=== PATIENT | female | born 1960 | race Caucasian/White ===

== ENCOUNTER 2020-05-22 17:15 | Inpatient (IN) | payer BC, OTHER ==
[~2020-05-22] VITALS: Ht 160 cm; Wt 76.2 kg
--- NOTE | 2020-05-22 17:33 | NUR ---
Patient BIB [facility] via gurney from [facility]. Patient c/o increased anxiety and depression x6 days. Patient also states that it has been hard to sleep. Denies any SI / HI / AH / VH. Breathing even and unlabored. no cough or SOB noted. denies any CP / N / V. Safety precautions implemented. s/r up x2
--- NOTE | 2020-05-22 17:35 | NUR ---
Cecelia Campos CONCRETE TECHNICIAN notified. given and eta of 1899
[2020-05-22] MEDS ORDERED: BUPR150T10 PO (18:00)
[2020-05-22] MEDS ORDERED: VALS320T2 PO (18:00)
[2020-05-22] MEDS ORDERED: ASPI81TA31 PO (18:00)
[2020-05-22] MEDS ORDERED: ROSU10TA2 PO (18:00)
[2020-05-22] MEDS ORDERED: AMLO5TAB9 PO (18:00)
[2020-05-22] MEDS ORDERED: ESCI20TA PO (18:00)
[2020-05-22] MEDS ORDERED: OMEP40CA13 PO (18:00)
--- NOTE | 2020-05-22 19:40 | NUR ---
Patient noted resting in bed, no signs of acute distress noted
--- NOTE | 2020-05-22 19:50 | NUR ---
Crisis team called at this time (Cecelia), no answer, message left
--- NOTE | 2020-05-22 23:04 | NUR ---
report given to david MARTIN, will be going to room 308
[2020-05-22] MEDS ORDERED: TEMAZEPAM 7.5 MG CAPSULE PO PRN (23:45)
[2020-05-22] MEDS ORDERED: MAGNESIUM HYDROXIDE 30 ML LIQUID UDC PO PRN (23:45)
[2020-05-22] MEDS ORDERED: LORAZEPAM 1 MG TABLET PO PRN (23:45)
[2020-05-22] MEDS ORDERED: ACETAMINOPHEN 325 MG TABLET PO PRN (23:45)
--- NOTE | 2020-05-22 23:50 | NUR ---
Pt. admitted to MHU , under care of Dr. Olvera, no signs distress noted Belongs List completed and all belongings sent
--- NOTE | 2020-05-22 23:57 | NUR ---
Report given to MHU Nurse Neal MARTIN
[2020-05-23 00:06] VITALS: BP 134/82
--- NOTE | 2020-05-23 01:30 | NUR ---
GPS: Admitted to the unit on a voluntary status a 60 yr.old female under the care of /LIVAN Medina in fair condition. Pt.has been having increased anxiety,depression for the last 2 months. Also hasn't been eating,difficulty sleeping. Pt.states this all started during the quarantining r/t Covid. Pt.is AOx4. Cooperative but anxious during admission process. Denies wanting to hurt self. Contracts for safety while in the hosp. Pt's handbook/unit rules explained and verbalized understanding. Body assessment done by female nurse as requested by pt. Personal belongings completed. Safe environment provided. Restoril 7.5mg given for insomnia as requested. Will monitor effectiveness.
--- NOTE | 2020-05-23 06:36 | NUR ---
Nathen Jasmine paged through [employer] regarding medication reconciliation, awaiting call back.
[2020-05-23 07:30] VITALS: BP 130/73
--- NOTE | 2020-05-23 07:30 | NUR ---
Received patient on bed,AOx4, ambulatory self care, patient was concern on her medication and stil;l waiting for the med recon, patient seem to be guarded and isolative, no distress at this time , safety provided, needs attended
[2020-05-23] MEDS: MAG HYDROX/AL HYDROX/SIMETH 30 ML LIQUID UDC PO PRN (08:25)
--- NOTE | 2020-05-23 08:46 | NUR ---
Firearms Report: High Speed Printer Operator completed and submitted a [employer] firearms report. A copy of report has been placed in patient chart.
[2020-05-23] MEDS: buPROPion XL 150 MG TAB.SR.24H PO SCH (09:50)
[2020-05-23] MEDS: ESCITALOPRAM OXALATE 10 MG TABLET PO SCH (09:51)
--- NOTE | 2020-05-23 10:01 | NUR ---
JUVE Initial Discharge Plan: Patient currently resides at home alone [address] [place] [address] ([phone]). Patient would like to return home when she is ready. Patient's brother is her emergency contact Diogenes Gloria ([phone]). JUVE will continue to work with patient, family, and MD to ensure a safe and proper discharge plan.
--- NOTE | 2020-05-23 10:38 | NUR ---
UR NOTE: Authorization # [id number] Patient is authorized for 3 days, clinical review due on 05/25/20 Symone Guitar Player at [facility] ([phone] ext. [phone]).
--- NOTE | 2020-05-23 10:47 | NUR ---
CALLED AND LEFT MESSAGE TO DR. FINNEGAN REGARDING MED RECON, WILL CONTINUE FOLLOW UP
[2020-05-23] MEDS ORDERED: VALSARTAN 160 MG TABLET PO SCH (12:00)
[2020-05-23] MEDS ORDERED: PANTOPRAZOLE SODIUM 40 MG TABLET.DR PO SCH (12:00)
[2020-05-23] MEDS: AMLODIPINE 5 MG TABLET PO SCH (12:13)
[2020-05-23] MEDS: ASPIRIN 81 MG TAB.CHEW PO SCH (12:13)
[2020-05-23] MEDS: PANTOPRAZOLE SODIUM 40 MG TABLET.DR PO SCH ×2 (12:30→20:18)
[2020-05-23 15:05] VITALS: BP 138/74
[2020-05-23] MEDS: VALSARTAN 160 MG TABLET PO SCH (20:18)
[2020-05-23] MEDS: QUETIAPINE FUMARATE 100 MG TABLET PO SCH (20:18)
[2020-05-23] MEDS: ATORVASTATIN 20 MG TABLET PO SCH (20:18)
[2020-05-23 20:41] VITALS: BP 123/67
--- NOTE | 2020-05-24 04:59 | NUR ---
GPS: Remains asleep during rounds. In no acute distress noted. Fall precautions observed. Re-assured prn. Safety checks done Q15 minutes as scheduled.
[2020-05-24 07:30] VITALS: BP 110/65
[2020-05-24] MEDS: AMLODIPINE 5 MG TABLET PO SCH (08:05)
[2020-05-24] MEDS: ESCITALOPRAM OXALATE 10 MG TABLET PO SCH (08:08)
[2020-05-24] MEDS: ASPIRIN 81 MG TAB.CHEW PO SCH (08:08)
[2020-05-24] MEDS: buPROPion XL 150 MG TAB.SR.24H PO SCH (08:08)
[2020-05-24] MEDS: PANTOPRAZOLE SODIUM 40 MG TABLET.DR PO SCH ×2 (08:08→20:55)
[2020-05-24] MEDS: MAG HYDROX/AL HYDROX/SIMETH 30 ML LIQUID UDC PO PRN (08:42)
--- NOTE | 2020-05-24 10:00 | NUR ---
Patient is calm, cooperative, and redirectable, but is guarded and withdrawn to her room. Patient stated after taking the PM medication, she woke up feeling dizzy, lightheaded, and nauseous. Patient provided with education about possible side effects of Seroquel and provided with a written hand-out on mediation. patient is able to verbalize understanding of education. patient denies SI/HI, denies AH/VH. she is able to tolerate food and fluid. patient instructed to inform staff of concerns. educated about fall prevention and safety.
[2020-05-24 10:31] LABS: BASOPHILS # (AUTO) 0.1 K/uL (0.0-8.0); BASOPHILS % (AUTO) 1.1 % (0.0-2.0); EOSINOPHILS # (AUTO) 0.1 K/uL (0.0-0.7); EOSINOPHILS % (AUTO) 1.2 % (0.0-7.0); HEMATOCRIT 38.7 % (31.2-41.9); LYMPHOCYTES # (AUTO) 0.9 K/uL (20.0-40.0); LYMPHOCYTES % (AUTO) 17.1 % (20.5-51.5); MEAN CORPUSCULAR HEMOGLOBIN 31.9 uug (24.7-32.8); MEAN CORPUSCULAR HGB CONC 34 g/dL (32.3-35.6); MEAN CORPUSCULAR VOLUME 94.8 fL (75.5-95.3); MONOCYTES # (AUTO) 0.6 K/uL (2.0-10.0); MONOCYTES % (AUTO) 10.7 % (0.0-11.0); NEUTROPHILS # (AUTO) 3.8 K/uL (1.8-8.9); NEUTROPHILS % (AUTO) 69.9 % (38.5-71.5); PLATELET COUNT (AUTO) 215 K/uL (179-408); RED BLOOD CELL COUNT(AUTO) 4.08 MIL/uL (3.63-4.92); WHITE BLOOD COUNT (AUTO) 5.4 K/uL (3.8-11.8)
[2020-05-24 10:41] LABS: CREATININE 1.1 mg/dL (0.6-1.3); POTASSIUM 4.6 mmol/L (3.5-5.1)
[2020-05-24 11:00] LABS: BILIRUBIN,TOTAL 0.5 mg/dL (0.2-1.0); MAGNESIUM 2.5 mg/dL (1.8-2.4); THYROID STIMULATING HORMONE 1.329 mIU/mL (0.358-3.740); TOTAL PROTEIN, SERUM 6.4 g/dL (6.4-8.2)
[2020-05-24 15:14] VITALS: BP 101/62
[2020-05-24 20:20] VITALS: BP 127/70
[2020-05-24] MEDS: VALSARTAN 160 MG TABLET PO SCH (20:55)
[2020-05-24] MEDS: ATORVASTATIN 20 MG TABLET PO SCH (20:55)
[2020-05-24] MEDS: QUETIAPINE FUMARATE 100 MG TABLET PO SCH (20:55)
[2020-05-25 07:30] VITALS: BP 113/61
[2020-05-25] MEDS: ASPIRIN 81 MG TAB.CHEW PO SCH (08:50)
[2020-05-25] MEDS: PANTOPRAZOLE SODIUM 40 MG TABLET.DR PO SCH ×2 (08:51→20:49)
[2020-05-25] MEDS: buPROPion XL 150 MG TAB.SR.24H PO SCH (08:51)
[2020-05-25] MEDS: ESCITALOPRAM OXALATE 10 MG TABLET PO SCH (08:51)
[2020-05-25] MEDS: AMLODIPINE 5 MG TABLET PO SCH (09:00)
--- NOTE | 2020-05-25 10:36 | NUR ---
UR NOTE: JUVE called and left clinical reviews via voicemail for Symone Glue Spreading Machine Operator at [facility] ([phone] ext. [phone]) with patient's progress notes and medications. Addendum: 05/25/20 at 1038 by JANE HULL [id number] # [id number]
--- NOTE | 2020-05-25 11:51 | NUR ---
UR NOTE: Authorization #[id number] JUVE spoke with Symone Supervisor Customer Records Division at [facility] ([phone] ext. [phone]) who stated that the patient is authorized thru Saturday and review will be due Saturday05/27/20.
[2020-05-25 16:00] VITALS: BP 124/76
--- NOTE | 2020-05-25 17:20 | NUR ---
Pt received resting in bed, assessed, denies pain, discomfort, and no acute distress. Pt compliant with routine medications. Pt denies SI/HI with no AH/VH present. Pt able to CFS and make needs known. Pt continues to participate in all activities offered. Pt calm and cooperative, plan of care discussed including need for a UA while here, Pt teaching provided. Sample collected and sent to lab. All needs promptly attended to. Will continue to monitor and follow up accordingly.
[2020-05-25 18:35] LABS: *BILIRUBIN,URIN NEGATIVE (NEGATIVE); *BLOOD, URINE NEGATIVE (NEGATIVE); *COLOR,URINE YELLOW (YELLOW); *KETONES,URINE NEGATIVE (NEGATIVE); LEUKOCYTE ESTERASE ,URINE TRACE (NEGATIVE); NITRITE, URINE NEGATIVE (NEGATIVE); PH,URINE 7.5 (5.0-8.0); UGLUCOSE NEGATIVE (NEGATIVE)
[2020-05-25 18:55] LABS: *CLARITY,URINE SLIGHTLY HAZY (CLEAR); BACTERIA,URINE FEW /HPF (NONE SEEN); RBC,URINE 0-3 /HPF (0-3)
[2020-05-25 18:56] LABS: SQUAMOUS EPITHELIAL CELL,UR MODERATE /HPF (NONE SEEN)
[2020-05-25 20:00] VITALS: BP 115/62
[2020-05-25] MEDS: ATORVASTATIN 20 MG TABLET PO SCH (20:49)
[2020-05-25] MEDS: VALSARTAN 160 MG TABLET PO SCH (20:50)
[2020-05-25] MEDS ORDERED: QUETIAPINE FUMARATE 25 MG TABLET PO SCH (21:00)
--- NOTE | 2020-05-26 02:24 | NUR ---
Receibed patient in bed, patient calm and cooperative, medication compliant, no behavioral issue, patient will remain in a psych facility for further evaluation and treatment. Patient denies Suicidal and homicidal ideation.
[2020-05-26 07:30] VITALS: BP 134/74
--- NOTE | 2020-05-26 08:14 | NUR ---
SW Discharge Note: Patient will be discharged today back home [address] [place] [address] ([phone]). Patient will be using [employer] transportation today at 12PM. Patient presents alert and oriented times 4. Patient is aware and agreeable with discharge plan. Patient denies suicidal or homicidal ideation. Patient presents with euthymic mood and congruent affect. Patient will be following up with her primary physician Oneil Wilcox [address], [place] [address] ( ) and has an appointment scheduled via telehealth on 06/02/20 at 10:45AM. Patient will be following up with her outpatient psychiatrist Dr. Gil and Grain Broker And Market Operator, Jael at [address] [address] ([phone] fax: [phone]) and has a telehealth follow up appointment scheduled on Saturday05/31/20 at 10AM.
[2020-05-26 08:16] VITALS: BP 134/74
[2020-05-26] MEDS: ESCITALOPRAM OXALATE 10 MG TABLET PO SCH (08:16)
[2020-05-26] MEDS: ASPIRIN 81 MG TAB.CHEW PO SCH (08:16)
[2020-05-26] MEDS: AMLODIPINE 5 MG TABLET PO SCH (08:16)
[2020-05-26] MEDS: buPROPion XL 150 MG TAB.SR.24H PO SCH (08:16)
[2020-05-26] MEDS: PANTOPRAZOLE SODIUM 40 MG TABLET.DR PO SCH (08:17)
--- NOTE | 2020-05-26 08:40 | NUR ---
UR NOTE: Authorization #[id number] JUVE left a voicemail for Symone [place] Mill Operator at [facility] ([phone] ext. [phone]) informing of patient's discharge today.
[2020-05-26] MEDS ORDERED: CEphaleXIN 500 MG CAPSULE PO SCH (09:00)
--- NOTE | 2020-05-26 10:06 | NUR ---
Patient's prescriptions from dr. Gil was called to patient's pharmacy, [facility] ([phone]). Spoke with Jaime.
--- NOTE | 2020-05-26 10:29 | NUR ---
Received Patient awake, AOX4 in stable condition. Patient will be discharged today back home [address] [place] [address] ([phone]). Patient will be using [employer] transportation today at 12PM. Patient presents alert and oriented times 4. Patient is aware and agreeable with discharge plan. Patient denies suicidal or homicidal ideation. Patient no behavioral problem noted. Patient will be following up with her primary physician Oneil Wilcox [address], [place] [address] ( ) and has an appointment scheduled via telehealth on 06/02/20 at 10:45AM. Patient will be following up with her outpatient psychiatrist Dr. Gil and Railway Switch OperatorJael at [address] [address] ([phone] fax: [phone]) and has a telehealth follow up appointment scheduled on Saturday05/31/20 at 10AM. Patien no complaint of pain/discomfort. will continue monitor
--- NOTE | 2020-05-26 11:36 | NUR ---
Patient discharge to home at 11am. 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 Patient in stable condition. Patient no complaint of pain/discomfort noted. Patient discharge prescription given to patient. Verbalize understanding. Patient discharge summary and follow up appointment discuss with patient.
== END 2020-05-26 11:00 | disposition home or self-care (01) | DRG 885 ==
LOC: ER 17:23 → GPSOV3 23:15 → GPS 23:15 → UNDOADMIN 23:15
PROVIDERS: ADMIT Psychiatry & Neurology Psychiatry
DX: F33.2 Major depressive disorder, recurrent severe without psychotic features (principal); N39.0 Urinary tract infection, site not specified; R45.851 Suicidal ideations; E78.5 Hyperlipidemia, unspecified; F41.9 Anxiety disorder, unspecified; G47.00 Insomnia, unspecified; I10 Essential (primary) hypertension; K21.9 Gastro-esophageal reflux disease without esophagitis
CPT/HCPCS: 36415; 83735; 84100; 84443; 85025; 87086; 93005